=== PATIENT | male | born 1985 | race Caucasian/White ===

== ENCOUNTER 2017-09-03 17:04 | Emergency (ER) | payer OTHER, MEDICAID ==
[2017-09-03] MEDS: SOD CHLORIDE 0.9% 1,000 ML IV (18:12)
[2017-09-03] MEDS: KETOROLAC 30 MG INJ IV (18:13)
[2017-09-03 18:23] LABS: ADD MAN DIFF? NO
[2017-09-03 18:26] LABS: WHITE BLOOD COUNT 13.2 10^3/ul (4.8-10.8)
[2017-09-03 18:26] LABS: BASOPHIL # 0.1 10^3/ul (0.0-0.1); BASOPHILS % 0.5 % (0.0-2.0); EOSINOPHILS # 0.3 10^3/ul (0.0-0.5); HEMATOCRIT 42.9 % (42.0-52.0); HEMOGLOBIN 14.2 g/dl (14.0-18.0); LYMPHOCYTES # 1.6 10^3/ul (0.8-2.9); LYMPHOCYTES % 11.9 % (15.0-51.0); MEAN CORPUSCULAR HEMOGLOBIN 28.9 pg (29.0-33.0); MEAN CORPUSCULAR HGB CONC 33.1 g/dl (32.0-37.0); MEAN CORPUSCULAR VOLUME 87.4 fl (82.0-101.0); MEAN PLATELET VOLUME 8.5 fl (7.4-10.4); MONOCYTE # 1.3 10^3/ul (0.3-0.9); MONOCYTES % 9.7 % (0.0-11.0); NEUTROPHIL # 9.9 10^3/ul (1.6-7.5); NEUTROPHILS % 75.2 % (39.0-77.0); PLATELET COUNT 452 10^3/UL (140-415); RED BLOOD COUNT 4.91 10^6/ul (4.70-6.10); RED CELL DISTRIBUTION WIDTH 11.9 % (11.5-14.5)
[2017-09-03 18:44] LABS: ALANINE AMINOTRANSFERASE 66 IU/L (13-69); ALBUMIN 3.8 g/dl (3.3-4.9); ALKALINE PHOSPHATASE 147 IU/L (42-121); ANION GAP 15 (8-16); ASPARTATE AMINO TRANSFERASE 51 IU/L (15-46); BILIRUBIN,INDIRECT 0.3 mg/dl (0-1.1); BILIRUBIN,TOTAL 0.3 mg/dl (0.2-1.3); BLOOD UREA NITROGEN 12 mg/dl (7-20); CARBON DIOXIDE 27 mmol/L (21-31); CHLORIDE 101 mmol/L (97-110); CREATININE 0.98 mg/dl (0.61-1.24); GLUCOSE 112 mg/dl (70-220); POTASSIUM 4.2 mmol/L (3.5-5.1); SODIUM 139 mmol/L (135-144); TOTAL PROTEIN 8.5 g/dl (6.1-8.1)
[2017-09-03 18:57] LABS: TROPONIN-I < 0.012 ng/ml (0.00-0.12)
[2017-09-03] MEDS: CEFTRIAXONE 1 GM/50 ML (PMX) 50 ML IVPB (19:27)
== END 2017-09-03 20:10 | disposition home or self-care (01) ==
LOC: FTE 17:04
DX: J18.9 Pneumonia, unspecified organism (principal)
CPT/HCPCS: 71010; 80053; 83605; 84484; 85025; 87400; 93005; 96374; 96375; 99285-25